=== PATIENT | female | born 1930 | race Caucasian/White ===

== ENCOUNTER 2019-04-30 14:55 | Emergency (ER) | payer OTHER ==
[~2019-04-30] VITALS: Ht 165.1 cm; Wt 54.4 kg
[2019-04-30 16:11] LABS: ABSOLUTE NEUTROPHILS 5.7 thou/uL (1.4-8.2); BASOPHILS 1.1 % (0.0-2.0); EOSINOPHILS 0.1 % (0.0-3.0); HEMOGLOBIN 11.7 gm/dL (12.0-15.0); LYMPHOCYTES 12.2 % (24.0-44.0); MCH 30.2 pg (26.0-34.0); MCHC 32.6 g/dL (28.0-37.0); MCV 92.5 fL (80.0-100.0); PLATELET COUNT 282 thou/uL (150-400); POLYS 77.6 % (36.0-66.0); RBC 3.89 mil/uL (4.20-5.00); RDW 18.4 % (10.5-14.5); URINE BILIRUBIN NEGATIVE (Negative); URINE BLOOD 1+ (Negative); URINE CLARITY CLEAR; URINE COLOR YELLOW; URINE GLUCOSE-RANDOM* NEGATIVE (Negative); URINE KETONES NEGATIVE (Negative); URINE LEUKOCYTES-REFLEX NEGATIVE (Negative); URINE NITRITE-REFLEX NEGATIVE (Negative); URINE PROTEIN (DIPSTICK) NEGATIVE (Negative); URINE SPECIFIC GRAVITY 1.015 (1.005-1.035); URINE UROBILINOGEN 0.2 E.U./dl (0.2-1.0); WBC 7.4 thou/uL (4.0-11.0)
[2019-04-30 16:24] LABS: APTT 27.2 Seconds (24.5-32.8); PROTIME 10.4 Seconds (9.3-11.4)
[2019-04-30 16:26] LABS: CALCIUM 9.8 mg/dL (8.5-10.1); CREATININE 1.1 mg/dL (0.6-1.0); POTASSIUM 4.3 mmol/L (3.5-5.1)
[2019-04-30 16:28] LABS: CASTS None Seen /LPF (None Seen); SQUAMOUS 0-3 Few /LPF (0-3)
[2019-04-30 16:29] LABS: BACTERIA-REFLEX None Seen /HPF (None Seen); CRYSTALS None Seen /LPF (None Seen); URINE RBC 0-2 Rare /HPF (0-2); URINE WBC-REFLEX 0-5 Rare /HPF (0-5)
[2019-04-30 16:32] LABS: ALBUMIN 3.8 g/dL (3.4-5.0); TOTAL BILIRUBIN 0.5 mg/dL (<0.1-1.0); TOTAL PROTEIN 7.4 g/dL (6.4-8.2)
[2019-04-30 17:01] LABS: ANISOCYTOSIS 2+
[2019-04-30 17:02] LABS: OVALOCYTES FEW
[2019-04-30] MEDS ORDERED: LISINOPRIL10 MG PO (17:34)
[2019-04-30] MEDS ORDERED: ASPIR 8181 MG PO (17:35)
[2019-04-30] MEDS ORDERED: ZANTAC 150MG T150 MG PO (17:35)
[2019-04-30] MEDS ORDERED: PRESERVISION A1 EACH PO (17:36)
[2019-04-30 17:42] VITALS: BP 138/63
--- NOTE | 2019-05-02 07:43 | EKG ---
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 : 1930 Requested By: Kalpana Nazario Order Number: [id number] MD: Leonid Lopez Measurements Intervals [place] Rate: 63 P: 81 [place]: 166 QRS: 15 QRSD: 129 T: 22 QT: 451 QTc: 462 Interpretive Statements Sinus rhythm Right bundle branch block No previous ECG available for comparison Electronically Signed On 05-02-2019 7:43:11 CDT by Leonid Lopez [email or web address] ��������������������������������������������� <ELECTRONICALLY SIGNED> ���������������������������������������� By: Leonid Lopez MD, [facility] ��������������������������������������������� 05/02/19 0743 1614 1614 Leonid Lopez MD, FACC /EPI
== END 2019-04-30 17:42 | disposition short-term general hospital (02) ==
LOC: ER 14:55
PROVIDERS: Physician Assistant
DX: S06.5X0A Traumatic subdural hemorrhage without loss of consciousness, initial encounter (principal); I10 Essential (primary) hypertension; R29.6 Repeated falls; Z88.5 Allergy status to narcotic agent; Z79.899 Other long term (current) drug therapy; Z79.82 Long term (current) use of aspirin; W19.XXXA Unspecified fall, initial encounter; Y93.89 Activity, other specified; Y92.89 Other specified places as the place of occurrence of the external cause; Y99.9 Unspecified external cause status

== ENCOUNTER 2021-09-18 20:39 | Emergency (ER) | payer OTHER ==
[~2021-09-18] VITALS: Ht 165.1 cm; Wt 53.1 kg
--- NOTE | ~2021-09-18 | EMS ---
[facility] [address] [place] [address] EMS Patient Care Report Name: TRACY DEE FABIOLA Room #: DEP ELIUD [place]#: [id number] Admission: 09/18/21 Attend Phys: Discharge: 09/18/21 Date of : 34 Report #: [id number] THIS REPORT FOR: //name// Report Transmitted: 09/19/2021 07:12 EMS Care Summary [facility] MED-ACT Incident [id number] @ 09/18/2021 20:10 Incident Location [address] [place] [address] Patient TRACY DEE Female, 89 Years 1930 Patient Address [address] [place] [address] Patient History Hypertension (HTN), Patient Allergies No known allergies, Patient Medications Lisinopril, Chief Complaint Passed out Disposition Transported No Lights/[place] Dispatch Reason Unconscious/Fainting Transported To [facility] Narrative EMS arrives to find pt lying supine on the floor in the bathroom, family states they came into the bathroom passed out on the toilet and they lowered her to the floor and she woke up. Pt reports dealing with diarrhea but states recently the diarrhea and gas has been worse. Pt reports pain when she is having gas but [facility] [address] [place] [address] EMS Patient Care Report Name: TRACY DEE Room #: DEP ER Beka#: [id number] Admission: 09/18/21 Attend Phys: Discharge: 09/18/21 Date of : 34 Report #: [id number] it resolves itself. Pt also reports nausea when she is having her episodes of diarrhea but denies vomiting. Pt denies blood in any of her stool. 12 lead reveals normal sinus, VS stable. Pt was able to stand and move to the stairchair with minor assistance and was moved to the cot, pt secured via seatbelts. Pt transported to [facility], no change in pt condition during transport, pt moved to ED bed via sheet drag and pt care transferred to ED nursing staff. Initial Vitals @20:27P: 80,SpO2: 86, @20:27P: 83,SpO2: 76, @20:28P: 78,SpO2: 97, @20:35P: 76,R: 16,BP: 146/60,Pain: 0/10,GCS: 15,SpO2: 97,Revised Trauma: 12, @20:17P: 83,R: 16,BP: 115/67,Pain: 0/10,GCS: 15,Temp: 98.2F,SpO2: 98,Revised Trauma: 12, Impression Syncope / Fainting Procedures @20:28 12-Lead ECG Response: UnchangedSucceeded @20:17 ALS Assessment Response: UnchangedSucceeded Timeline 20:08,Call Received 20:08,Psap Call 20:10,Dispatched 20:11,En Route 20:13,On Scene 20:14,At Patient 20:17,BP: 115/67 M,PULSE: 83,RR: 16 R,SPO2: 98 Ox,ETCO2: ,BG: ,PAIN: 0,GCS: 15, 20:17,ALS Assessment,Response: UnchangedSucceeded, 20:24,Depart Scene 20:27,BP: / M,PULSE: 80,RR: R,SPO2: 86 Ox,ETCO2: ,BG: ,PAIN: ,GCS: , 20:27,BP: / M,PULSE: 83,RR: R,SPO2: 76 Ox,ETCO2: ,BG: ,PAIN: ,GCS: , 20:28,12-Lead ECG,Response: UnchangedSucceeded, 20:28,BP: / M,PULSE: 78,RR: R,SPO2: 97 Ox,ETCO2: ,BG: ,PAIN: ,GCS: , 20:35,BP: 146/60 M,PULSE: 76,RR: 16 R,SPO2: 97 Ox,ETCO2: ,BG: ,PAIN: 0,GCS: 15, 20:36,At Destination 20:50,Call Closed Disclaimer v1.1 Copyright 2020 [employer] This EMS Care Summary contains data elements from the applicable legal record [address] [address] EMS Patient Care Report Name: TRACY DEE MARCH Room #: DEP ELIUD Ireland#: [id number] Admission: 09/18/21 Attend Phys: Discharge: 09/18/21 Date of : 32 Report #: [id number] (which may be displayed differently). It is designed to provide pertinent information for the following purposes: continuity of care, clinical quality, and state data reporting. The complete legal record is available to ED staff and administrators of the receiving hospital in [facility]'s Patient Tracker. All data is provided "as is."
--- NOTE | ~2021-09-18 | EMS ---
[facility] [address] [place] [address] EMS Patient Care Report Name: TRACY DEE FABIOLA Room #: DEP ELIUD Ireland#: [id number] Admission: 09/18/21 Attend Phys: Discharge: 09/18/21 Date of : 34 Report #: [id number] THIS REPORT FOR: //name// Report Transmitted: 09/18/2021 23:02 EMS Care Summary [facility] MED-ACT Incident [id number] @ 09/18/2021 20:10 Incident Location [address] [place] [address] Patient TRACY DEE Female, 89 Years 1930 Patient Address [address] [place] [address] Patient History Hypertension (HTN), Patient Allergies No known allergies, Patient Medications Lisinopril, Chief Complaint Passed out Disposition Transported No Lights/[place] Dispatch Reason Unconscious/Fainting Transported To [facility] Narrative EMS arrives to find pt lying supine on the floor in the bathroom, family states they came into the bathroom passed out on the toilet and they lowered her to the floor and she woke up. Pt reports dealing with diarrhea but states recently the diarrhea and gas has been worse. Pt reports pain when she is having gas but [facility] [address] [place] [address] EMS Patient Care Report Name: TRACY DEE FABIOLA Room #: DEP ER [place]#: [id number] Admission: 09/18/21 Attend Phys: Discharge: 09/18/21 Date of : 34 Report #: [id number] it resolves itself. Pt also reports nausea when she is having her episodes of diarrhea but denies vomiting. Pt denies blood in any of her stool. 12 lead reveals normal sinus, VS stable. Pt was able to stand and move to the stairchair with minor assistance and was moved to the cot, pt secured via seatbelts. Pt transported to [facility], no change in pt condition during transport, pt moved to ED bed via sheet drag and pt care transferred to ED nursing staff. Initial Vitals @20:27P: 80,SpO2: 86, @20:27P: 83,SpO2: 76, @20:28P: 78,SpO2: 97, @20:35P: 76,R: 16,BP: 146/60,Pain: 0/10,GCS: 15,SpO2: 97,Revised Trauma: 12, @20:17P: 83,R: 16,BP: 115/67,Pain: 0/10,GCS: 15,Temp: 98.2F,SpO2: 98,Revised Trauma: 12, Impression Syncope / Fainting Procedures @20:28 12-Lead ECG Response: UnchangedSucceeded @20:17 ALS Assessment Response: UnchangedSucceeded Timeline 20:08,Call Received 20:08,Psap Call 20:10,Dispatched 20:11,En Route 20:13,On Scene 20:14,At Patient 20:17,BP: 115/67 M,PULSE: 83,RR: 16 R,SPO2: 98 Ox,ETCO2: ,BG: ,PAIN: 0,GCS: 15, 20:17,ALS Assessment,Response: UnchangedSucceeded, 20:24,Depart Scene 20:27,BP: / M,PULSE: 80,RR: R,SPO2: 86 Ox,ETCO2: ,BG: ,PAIN: ,GCS: , 20:27,BP: / M,PULSE: 83,RR: R,SPO2: 76 Ox,ETCO2: ,BG: ,PAIN: ,GCS: , 20:28,12-Lead ECG,Response: UnchangedSucceeded, 20:28,BP: / M,PULSE: 78,RR: R,SPO2: 97 Ox,ETCO2: ,BG: ,PAIN: ,GCS: , 20:35,BP: 146/60 M,PULSE: 76,RR: 16 R,SPO2: 97 Ox,ETCO2: ,BG: ,PAIN: 0,GCS: 15, 20:36,At Destination 20:50,Call Closed Disclaimer v1.1 Copyright 2020 [employer] This EMS Care Summary contains data elements from the applicable legal record [address] [address] EMS Patient Care Report Name: TRCAY DEE MARCH Room #: DEP ELIUD Ireland#: [id number] Admission: 09/18/21 Attend Phys: Discharge: 09/18/21 Date of : 34 Report #: [id number] (which may be displayed differently). It is designed to provide pertinent information for the following purposes: continuity of care, clinical quality, and state data reporting. The complete legal record is available to ED staff and administrators of the receiving hospital in [facility]s Patient Tracker. All data is provided "as is."
[~2021-09-18 20:39] MED LIST: ASPIR 8181 MG PO; LISINOPRIL10 MG PO; PRESERVISION A1 EACH PO; ZANTAC 150MG T150 MG PO
[2021-09-18 21:09] LABS: ABSOLUTE NEUTROPHILS 6.3 thou/uL (1.4-8.2); BASOPHILS 0.7 % (0.0-2.0); EOSINOPHILS 0.9 % (0.0-3.0); HEMOGLOBIN 12.4 gm/dL (12.0-15.0); LYMPHOCYTES 15.4 % (24.0-44.0); MCHC 33.5 g/dL (28.0-37.0); MCV 92.6 fL (80.0-100.0); MONOCYTES 6.3 % (1.0-8.0); PLATELET COUNT 272 thou/uL (150-400); POLYS 76.7 % (36.0-66.0); RDW 13.9 % (10.5-14.5); WBC 8.3 thou/uL (4.0-11.0)
[2021-09-18 21:18] LABS: CREATININE 1.2 mg/dL (0.6-1.0); POTASSIUM 3.5 mmol/L (3.5-5.1)
[2021-09-18 21:27] LABS: ALBUMIN 3.5 g/dL (3.4-5.0); TOTAL BILIRUBIN 0.4 mg/dL (0.2-1.0); TOTAL PROTEIN 6.5 g/dL (6.4-8.2)
[2021-09-18 22:26] LABS: URINE BILIRUBIN NEGATIVE (Negative); URINE BLOOD 1+ (Negative); URINE CLARITY CLEAR; URINE COLOR YELLOW; URINE GLUCOSE-RANDOM* NEGATIVE (Negative); URINE KETONES TRACE (Negative); URINE LEUKOCYTES-REFLEX TRACE (Negative); URINE NITRITE-REFLEX NEGATIVE (Negative); URINE PROTEIN (DIPSTICK) 1+ (Negative); URINE UROBILINOGEN 0.2 E.U./dl (0.2-1.0)
[2021-09-18 22:39] LABS: BACTERIA-REFLEX 1-9 Few /HPF (None Seen); CASTS None Seen /LPF (None Seen); CRYSTALS None Seen /LPF (None Seen); MUCUS 0-3 Light strn/LPF (None Seen); SQUAMOUS 0-3 Few /LPF (0-3); URINE RBC 3-10 Few /HPF (NONE SEEN); URINE WBC-REFLEX 0-5 Rare /HPF (0-5)
[2021-09-18 23:00] VITALS: BP 151/59
--- NOTE | 2021-09-19 07:17 | EKG ---
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1930 Requested By: Rama Garcia Order Number: [id number] MD: Moiz Magaña Measurements Intervals [place] Rate: 72 P: 71 [place]: 170 QRS: 24 QRSD: 104 T: 61 QT: 424 QTc: 465 Interpretive Statements Pacemaker spikes or artifacts Sinus rhythm Probable left atrial enlargement RSR' in V1 or V2, probably normal variant Borderline ST depression, lateral leads Artifact in lead(s) I,II,aVR,aVL,aVF Compared to ECG 04/30/2019 16:14:29 RSR' in V1 or V2 now present ST (T wave) deviation now present Right bundle-branch block no longer present Electronically Signed On 09-19-2021 7:16:49 ONLINE MARKETING DIRECTOR by Moiz Magaña [email or web address] <ELECTRONICALLY SIGNED> By: Moiz Magaña MD, FACC 09/19/21715 50 50 Moiz Magaña MD, [facility] /EPI
== END 2021-09-18 23:01 | disposition home or self-care (01) ==
LOC: ER 20:39
PROVIDERS: Emergency Medicine
DX: R55 Syncope and collapse (principal); R19.7 Diarrhea, unspecified; I10 Essential (primary) hypertension; Z79.899 Other long term (current) drug therapy; Z88.5 Allergy status to narcotic agent

== ENCOUNTER → 2021-09-24 | Outpatient (CLI) | payer OTHER | LOC: CAT 12:19 | PROVIDERS: ATTEND Nurse Practitioner | DX: R90.82 White matter disease, unspecified (principal); R41.82 Altered mental status, unspecified ==